=== PATIENT | male | born 1995 | race African-American/Black ===

== ENCOUNTER 2019-01-13 12:02 | Emergency (ER) | payer OTHER ==
--- NOTE | 2019-01-13 12:13 | ER Document Report ---
ED Medical Screen (RME) - General Chief Complaint: Laceration Stated Complaint: FINGER INJURY Time Seen by Provider: 01/13/19 12:12 Mode of Arrival: Ambulatory Information source: Patient TRAVEL OUTSIDE OF THE [place] IN LAST 30 DAYS: No - HPI Patient complains to provider of: cut L index finger Onset: Just prior to arrival - pt. cut L index finger just prior to admission. Tet- UTD. Bleeding controlled - Related Data Allergies/Adverse Reactions: No Known Allergies Allergy (Unverified 01/13/19 12:05) Physical Exam - Vital signs Vitals: Temp Pulse Resp BP Pulse Ox 98.3 F 58 L 14 152/75 H 100 01/13/19 12:06 01/13/19 12:06 01/13/19 12:06 01/13/19 12:06 01/13/19 12:06 Course - Vital Signs Vital signs: Temp Pulse Resp BP Pulse Ox 98.3 F 58 L 14 152/75 H 100 01/13/19 12:06 01/13/19 12:06 01/13/19 12:06 01/13/19 12:06 01/13/19 12:06
[2019-01-13] MEDS ORDERED: LIDOCAINE 2% INJ (20 MG/ML) 20 ML MDV INJ ONE (13:38)
--- NOTE | 2019-01-13 15:03 | ER Document Report ---
HPI - HPI Patient complains to provider of: laceration Time Seen by Provider: 01/13/19 12:12 Pain Level: 3 Context: 23-year-old [id number] male with no past medical history presents to the emergency department for laceration of left index finger. He states he was trying to cut some plastic with a knife and it slipped causing him to injure the finger. He denies any range of motion deficits, minimal bleeding. Tetanus is up-to-date as he is an [employer]. He does complain of a little bit of paresthesia to the lateral aspect of his left index finger. No other complaints Past Medical History - General Information source: Patient - Social History Smoking Status: Never Smoker Chew tobacco use (# tins/day): No Frequency of alcohol use: Social Drug Abuse: None Family History: None Patient has suicidal ideation: No Patient has homicidal ideation: No Renal/ Medical History: Denies: Hx Peritoneal Dialysis Vertical Provider Document - CONSTITUTIONAL Agree With Documented VS: Yes Exam Limitations: No Limitations General Appearance: WD/WN, No Apparent Distress - INFECTION CONTROL TRAVEL OUTSIDE OF THE [place] IN LAST 30 DAYS: No - HEENT HEENT: Atraumatic, Normocephalic - MUSCULOSKELETAL/EXTREMETIES Musculoskeletal/Extremeties: DONALDO FROM Notes: Transverse linear laceration lateral aspect of left index finger. Flexor and extensor tendons intact to resistance. Opposition intact to resistance thumb to pinky. - DERM Integumentary: Warm, Dry, Laceration - Transverse laceration approximately 2.5 cm with minimal bleeding, linear. Course - Re-evaluation Re-evalutation: 01/13/19 15:25 Wound cleaned and irrigated copiously with normal saline. Local anesthesia performed. Flexor and extensor tendons intact to resistance, opposition intact with resistance. Patient tolerated procedure well. 4 simple interrupted sutures placed patient tolerated procedure well discharge instructions given tetanus is up-to-date. 01/13/19 15:26 - Vital Signs Vital signs: Temp Pulse Resp BP Pulse Ox 98.3 F 58 L 14 152/75 H 100 01/13/19 12:06 01/13/19 12:06 01/13/19 12:06 01/13/19 12:06 01/13/19 12:06 Procedures - Laceration/Wound Repair Left Finger 2nd digit Wound length (cm): 2.5 Wound's Depth, Shape: Superficial, Linear Laceration pre-procedure: Sterile PPE donned, Shur-Clens applied Anesthetic type: 2% Lidocaine Wound explored: Clean Wound Debrided: Minimal Wound Repaired With: Sutures Suture Size/Type: 4:0, Ethilon Post-procedure wound care: Sterile dressing applied, Splint applied Post-procedure NV exam normal: Yes Complications: No Discharge - Discharge Clinical Impression: Laceration Condition: Good Disposition: HOME, SELF-CARE Instructions: Antibiotic Ointment Protection (OM), Laceration Care (OM), Soap Cleansing ([facility]) Additional Instructions: Please return to your primary doctor, the ED, or an urgent care in 7 days for suture removal. Return immediately if you develop spreading redness around the wound, pus from the wound, worsening pain, or a fever of >101. Keep the area clean and dry. Wash gently with soap and water twice daily and cover with antibiotic ointment.
[2019-01-13 15:37] VITALS: BP 135/77
== END 2019-01-13 15:37 | disposition home or self-care (01) ==
LOC: ER 12:02
DX: S61.211A Laceration without foreign body of left index finger without damage to nail, initial encounter (principal); W26.0XXA Contact with knife, initial encounter; Y93.89 Activity, other specified
CPT/HCPCS: 99282; 12001; J3490